=== PATIENT | male | born 1975 | race Caucasian/White ===

== ENCOUNTER 2017-04-24 07:52 | Observation (INO) ==
[2017-04-24] MEDS ORDERED: *HR* LORazepam 2 MG/ML VIAL ONE (07:56)
[2017-04-24] MEDS: *HR* LORazepam 2 MG/ML VIAL IM ONE ×2 (08:01→09:26)
--- NOTE | 2017-04-24 08:12 | Emergency Department Note ---
Disposition Clinical Impression: Elevated TSH Drug ingestion Qualifiers: Encounter type: initial encounter Injury intent: undetermined intent Qualified Code(s): T50.904A - Poisoning by unspecified drugs, medicaments and biological substances, undetermined, initial encounter Altered mental status Qualifiers: Altered mental status type: unspecified Qualified Code(s): R41.82 - Altered mental status, unspecified Disposition: Admitted As Inpatient Condition: Fair Forms: ED Satisfaction Letter Time of Disposition: 15:14 General Adult HPI - General Chief complaint: ED Overdose Stated complaint: ingestion Nursing Notes Reviewed: Yes Vital Signs Reviewed: Yes - History of Present Illness HPI Narrative: 41-year-old male past medical history of smoking, COPD, drug use, presents to the emergency department after inhaling a powdery substance approximately 10 hours ago. Patient states that he also injected something too. Patient reports that he thought it was cocaine, but states he feels like it iis something different. Patient states that he is having a lot of chest pain and discomfort at this time. States that he has had had an episode like this once before. - Related Data Home Medications Medication Instructions Recorded Confirmed Albuterol Sulfate [Albuterol 90 mcg IH Q4HR PRN 06/09/15 06/09/15 Inhaler] BuPROPion SR (12 HR) [Wellbutrin 150 mg PO HS 06/09/15 06/09/15 SR] HYDROcodone/Acet 5/325 mg [[place] 1 tab PO Q6H PRN 06/09/15 06/09/15 5-325 mg] Ibuprofen [Motrin] 200 mg PO Q6HR 06/09/15 06/09/15 Nicotine Polacrilex [Nicorette] 2 mg BC PRN 06/09/15 06/09/15 Tamsulosin [Flomax] 0.4 mg PO HS 06/09/15 06/09/15 Tizanidine HCl [Zanaflex] 4 mg PO TID 06/09/15 06/09/15 Previous Rx's Medication Instructions Recorded OxyCODONE Immed Rel [Roxicodone 5 10 mg PO Q4HR PRN #60 tablet 06/11/15 MG] Amoxicillin/Clavulanate [Augmentin] 875 mg PO BID #10 tablet 11/27/16 Etodolac 400 mg PO BID PRN #10 tablet 11/27/16 Potassium Chloride 20 meq PO BID #6 tab.er.prt 11/27/16 Sulfamethoxazole/Trimeth DS 1 each PO BID #14 tablet 11/29/16 [Bactrim DS] Ciprofloxacin HCl [Cipro] 500 mg PO BID #20 tablet 12/17/16 Doxycycline 100 mg PO BID #20 capsule 12/17/16 Naproxen [Naprosyn] 500 mg PO BID PRN #20 tablet 12/17/16 Allergies Allergy/AdvReac Type Severity Reaction Status Date / Time No Known Allergies Allergy Verified 04/24/17 07:59 All systems ED: reviewed and negative except as stated. Review of Systems: As Per HPI Constitutional: Denies: fever Cardiovascular: Reports: chest pain Respiratory: Reports: cough, dyspnea Gastrointestinal: Denies: abdominal pain, nausea, vomiting Musculoskeletal: Denies: back pain Past Medical History - Past Medical History Medical history: Reports: COPD Surgical history: Reports: non-contributory Psychiatric history: Reports: no psych history - Social History Smoking Status: Current every day smoker Smokeless Tobacco Status: No Alcohol use: Reports: occasionally Drug use: Reports: cocaine, IV Drug Use Physical Exam General: A 41-year-old male who appears to be really anxious, writhing around in the room, appearing very agitated Head: autraumatic, EOMI, no conjuncitval pallor, no scleral icterus, Mouth: oral mucous membranes moist Neck: neck soft, trachea midline Chest:: Equal chest wall rise Lungs: Normal lungs sounds bilaterally, no wheezes, no respiratory distress Heart: normal heart sounds, tachycardic and normal rhythm, Abdomen: soft, non-tender, no rigidity, no guarding, no rebdound tenderness Lower Extremities: no pedal edema, calves non-tender Integumentary: Skin warm, dry, and intact Neuro: Alert and oriented to person, place, time. Dilated pupils, equal and reactive. No focal neurologic deficits. Psych: Agitated Course Vital Signs Temperature 99.8 F H 04/24/17 07:54 Pulse Rate 144 04/24/17 07:54 Respiratory Rate 24 04/24/17 07:54 Blood Pressure 152/95 04/24/17 07:54 O2 Sat by Pulse Oximetry 96 04/24/17 07:54 Temperature 99.8 F H 04/24/17 07:54 Pulse Rate 86 04/24/17 14:09 Respiratory Rate 18 04/24/17 14:09 Blood Pressure 102/73 04/24/17 14:09 O2 Sat by Pulse Oximetry 96 04/24/17 14:09 Oxygen Delivery Oxygen Delivery Nasal Cannula Medical Decision Making - [facility] Narrative Medical decision making narrative: 41-year-old male with history of 12 hours of ingestion of what the patient thinks is unknown substance. Patient came to the emergency department extremely agitated. 4 mg IM Ativan was given. Chest x-ray and electrocardiogram were obtained. Chest x-ray revealed bullous emphysema but no acute evidence of pneumonia or any signs of infection. Echocardiogram did not reveal any ischemic changes. Patient was tachycardic and hypertensive when he came in. After administration of Ativan, patient continued to be tachycardic and was borderline hypotensive. We gave the patient a liter of normal saline. During his visit, patient went to the bathroom and is to be believed by staff that he was snorting a substance. Within 10 minutes, the patient became extremely agitated and attempted to leave. We ordered restraints on this patient as we did not believe he was altered and not oriented unknown to make medical decisions. We then gave patient 4 mg IM of Ativan and 10 mg of Haldol. Patient became calm and somnolent throughout the rest of his stay in this emergency department. Patient was admitted to the hospital for observation regarding his altered mental status. Dr. Loza agreed to accept the patient. Patient was somnolent, pulse was 86. Blood pressure was 102/73. We will obtain a TSH level 7.53. This is mildly elevated. I did discuss this with the hospitalist as well. Chest X-Ray 04/24/17 07:55 IMPRESSION: 1. Emphysema with severe bullous disease in the right upper lobe. No superimposed acute pulmonary abnormality. D/ / Terrance Solis MD / Terrance Solis MD Interpreting Provider: Terrance Solis MD Vital Signs Temperature 99.8 F H 04/24/17 07:54 Pulse Rate 144 04/24/17 07:54 Respiratory Rate 24 04/24/17 07:54 Blood Pressure 152/95 04/24/17 07:54 O2 Sat by Pulse Oximetry 96 04/24/17 07:54 Temperature 99.8 F H 04/24/17 07:54 Pulse Rate 86 04/24/17 14:09 Respiratory Rate 18 04/24/17 14:09 Blood Pressure 102/73 04/24/17 14:09 O2 Sat by Pulse Oximetry 96 04/24/17 14:09 Oxygen Delivery Oxygen Delivery Nasal Cannula - Lab Data Result diagrams: 04/24/17 08:07 Lab Results 04/24/17 04/24/17 Range/Units 08:07 08:07 Sodium 140 (136-145) mEq/L Potassium 3.9 (3.5-4.5) mEq/L Chloride 106 (98-109) mEq/L Carbon Dioxide 23 (19-29) mEq/L BUN 22 (8-26) mg/dL Creatinine 0.90 (0.72-1.25) mg/dL Est GFR ( Amer) > 60 (> 60) Est GFR (Non-Af Amer) > 60 (> 60) BUN/Creatinine Ratio 24 (6-26) Glucose 116 H (70-99) mg/dL Calculated Osmolality 294 (280-300) Calcium 9.2 (8.6-10.8) mg/dL Troponin I 0.00 (0-0.03) ng/mL TSH 7.936 H (0.350-4.840) mcIU/mL - EKG Data EKG #1 EKG attestation: Yes I reviewed and interpreted this EKG. EKG results narrative: 7:59 Ventricular rate 138 bpm, IA interval 140 ms, QRS duration 88 ms, QT 216 ms, QTC 349 ms, normal axis. Sinus tachycardia with a shortened IA interval. There are no ischemic ST changes noted on this electrocardiogram. This electrocardiogram is the same as one performed on March 12.
--- NOTE | 2017-04-24 08:14 | Emergency Department Note ---
START Narrative - START START: I examined this patient and my medical decision-making was reviewed with the Resident Physician. I agree with the documented findings, disposition and treatment plan as described except to the extent set forth below. Pt present agitated, not the best historian. States he took something that "was supposed to be" cocaine, "but I don't think it was." Tachycardic, moderately hypertensive. Has CP, non-radiating, describes poorly, seems to have been there for weeks but can't completely trust history. CXR without mediastinal widening. Radial pulses equal and symmetrical. Clinical suspicion for dissection is very low. EKG reviewed by me, shows sinus tach without ischemic changes or signs of PE outside of tachycardia. Will treat with benzos, cycle troponins, monitor for changes.
[2017-04-24 08:30] LABS: BUN/Creatinine Ratio 24 (6-26); Blood Urea Nitrogen 22 mg/dL (8-26); Calcium 9.2 mg/dL (8.6-10.8); Carbon Dioxide 23 mEq/L (19-29); Chloride 106 mEq/L (98-109); Glucose 116 mg/dL (70-99); Osmolality,Calculated 294 (280-300); Potassium 3.9 mEq/L (3.5-4.5); Sodium 140 mEq/L (136-145); eGFR For African Americans > 60 (> 60); eGFR For Non-African Americans > 60 (> 60)
[2017-04-24] MEDS ORDERED: Ipratropium/Albuterol Neb 3 ML IH STA (08:31)
[2017-04-24 09:02] LABS: Thyroid Stimulating Hormone 7.936 mcIU/mL (0.350-4.840)
[2017-04-24] MEDS ORDERED: *HR* LORazepam 2 MG/ML VIAL IM ONE ×2 (09:16→09:18)
[2017-04-24] MEDS ORDERED: Haloperidol Lactate 5 MG/ML VIAL IM ONE (09:19)
[2017-04-24] MEDS ORDERED: Haloperidol Lactate 5 MG/ML VIAL ONE (09:21)
[2017-04-24] MEDS ORDERED: 0.9 % Sodium Chloride 1,000 ML IVC ONE (10:45)
[2017-04-24] MEDS ORDERED: Naloxone 0.4 MG/ML INJ IVP PRN (16:20)
[2017-04-24] MEDS ORDERED: Ondansetron 4 MG/2 ML VIAL IVP PRN (16:20)
[2017-04-24] MEDS ORDERED: Ipratropium Neb 0.5 MG NEBULIZER IH PRN (16:30)
[2017-04-24] MEDS ORDERED: Benzonatate 100 MG CAPSULE PO PRN (16:30)
--- NOTE | 2017-04-24 16:36 | Internal Med History&Physical ---
<Indio Borrero J - Last Filed: 04/24/17 20:54> Date of Encounter: 04/24/17 Time of Encounter: 16:34 Assessment and Plan (1) Drug ingestion Current visit: Yes Status: Acute Ingested an unknown substance last night, was agitated and combative while in the ED requiring 4 point leather restraints, Ativan and Haldol. He is now somnolent, hemodynamically stable. It is unknown if he has SI or HI. Unable to assess intentions d/t somnolence. Consult psych sitter at bedside Continue Ativan Consider adding Haldol if patient becomes agitated or combative Qualifiers: Encounter type: initial encounter Injury intent: undetermined intent Qualified Code(s): T50.904A - Poisoning by unspecified drugs, medicaments and biological substances, undetermined, initial encounter (2) Altered mental status Current visit: Yes Status: Acute combative and agitated after ingestion of an unknown substance. He is currently somnolent after receiving ativan and haldol. Remains hemodynamically stable. See plan above Qualifiers: Altered mental status type: unspecified Qualified Code(s): R41.82 - Altered mental status, unspecified (3) Elevated TSH Current visit: Yes Status: Acute Newly elevated TSH. Will check free T4 and consider adding synthroid based upon results (4) DVT prophylaxis Current visit: Yes Status: Acute heparin 5000 units SC BID Internal Medicine - H&P: HPI Chief complaint: ingestion of unknown substance Admitted From: Home Plans for Post Hospital Care: Home History of present illness: Mr. Leon is a 41 year old male with a PMH of tobacco abuse, COPD, and polysubstance abuse. Presents to [facility] today strictly agitated. The patient reports that finally last night ingested an unknown powdery substance. He reports that visit with friends and inhaled and also injected an unknown substance and began experiencing chest pain. He reports that he thought he was taking cocaine but that the sensation that followed ingestion of the substance was not what he typically experiences with cocaine. While in the ED he became extremely agitated and needed to be sedated with haldol and ativan. He is now somnolent. Past Med Surg Social Fam HX - Past Medical History Medical history: COPD Psychiatric history: no psych history - Past Surgical History Surgical History: non-contributory - Social History Smoking Status: Current every day smoker Smokeless Tobacco Status: No Alcohol use: occasionally Drug use: cocaine, IV Drug Use - Family History Father Living Status: Still Living Hx Family GI Disorders: Yes - Additional Family History Additional family history: NON-CONTRIBUTORY Internal Medicine - H&P: Meds Albuterol Sulfate [Albuterol Inhaler] 2 puff IH Q4HR PRN 06/09/15 [History] Benzonatate [Benzonatate] 100 mg PO TID PRN 04/24/17 [History] Budesonide/Formoterol 160/4.5 [Symbicort 160/4.5] 2 puff IH BIDR 04/24/17 [ History] Buprenorphine HCl/Naloxone HCl [Suboxone 8 mg-2 mg Sl Film] 1 each SL BID [History] Ipratropium Neb [Atrovent Neb] 0.5 mg IH Q4H PRN 04/24/17 [History] Loratadine [Claritin] 10 mg PO DAILY 04/24/17 [History] predniSONE [PredniSONE] See Taper PO DAILY 04/24/17 [History] 3 Allergy/AdvReac Type Severity Reaction Status Date / Time No Known Allergies Allergy Verified 04/24/17 07:59 ROS unobtainable: due to mental status All Systems PM: A 10-system review of systems was performed and is negative for pertinent findings except as documented above in the HPI. - Constitutional Vitals: Temp Pulse Resp BP Pulse Ox 99.8 F H 79 18 96/66 99 04/24/17 07:54 04/24/17 15:40 04/24/17 15:40 04/24/17 15:40 04/24/17 15:40 General appearance: Present: A&O X 1, disheveled, mild distress - Head Head exam: Present: atraumatic, normocephalic - Eye Eye exam: Present: PERRL Pupils: Present: PERRL - Neck Neck exam general surgery: Present: supple, trachea midline. Absent: lymphadenopathy - Respiratory Respiratory exam: Present: CTAB, respiratory distress, tachypnea. Absent: accessory muscle use, rales, rhonchi, wheezes - Cardiovascular Cardiovascular exam: Present: RRR, +S1, +S2. Absent: diastolic murmur, gallop, rubs, systolic murmur - GI/Abdominal GI/Abdominal exam: Present: normal bowel sounds, soft, no peritoneal signs. Absent: distended, tenderness - Extremities Exam Extremities exam: Present: normal capillary refill, normal inspection, warm, radial pulses palpable and symmetrical. Absent: calf tenderness, cyanotic, pedal edema, tenderness - Neurological Exam Neurological exam: Absent: pronater drift, facial droop, speech deficit Additional comments: JOCELYN d/t somnolence - Skin Skin exam: Present: dry, intact Internal Med - H&P Results - Labs CBC & Chem 7: 04/24/17 08:07 - Diagnostic Studies Chest x-ray Status: image reviewed by me Additional comments: emphysema with severe bollous disease in RUL <Keven Loza - Last Filed: 04/24/17 22:30> Date of Encounter: 04/24/17 Internal Medicine - H&P: HPI History of present illness: Mr. Leon is a 41 year old male All Systems PM: A 10-system review of systems was performed and is negative for pertinent findings except as documented above in the HPI. - Constitutional Vitals: Temp Pulse Resp BP Pulse Ox 99.8 F H 90 18 100/63 98 04/24/17 07:54 04/24/17 17:28 04/24/17 21:13 04/24/17 17:28 04/24/17 21:13 Internal Med - H&P Results - Labs CBC & Chem 7: 04/24/17 08:07 - Attending Attestation I have personally performed a face to face evaluation on this patient. I have reviewed and agree with the care plan. History and Exam by me shows: 41 y/o male with unknown drug ingestion. He was uncontrolled in ED and sedated. Exam Sedated. Heart reg No wheeze Agree with assessment and plan as above Sitter.
[2017-04-24] MEDS: *HR* Heparin 5,000 UNIT/ML VIAL SQ SCH (18:07)
[2017-04-24] MEDS: Budesonide/Formoterol 160/4.5 MDI IH SCH (21:13)
[2017-04-24] MEDS: (Buprenorphine Hcl/Naloxone Hcl [Suboxone 8 Mg-2 Mg S SL SCH (22:05)
[2017-04-24] MEDS: *HR* LORazepam 2 MG/ML VIAL IVP SCH (22:09)
[2017-04-25] MEDS: *HR* LORazepam 2 MG/ML VIAL IVP SCH ×3 (00:30→10:06)
[2017-04-25] MEDS: *HR* Heparin 5,000 UNIT/ML VIAL SQ SCH (05:12)
[2017-04-25 06:04] LABS: Basophils % 0.3 %; Eosinophils # 0.2 K/mcL (0.0-0.6); Eosinophils % 1.8 %; Hematocrit 44.6 % (37.5-50.1); Hemoglobin 14.7 g/dL (12.9-16.9); Immature Granulocytes % 0.8 % (0-4); Lymphocytes # 4.3 K/mcL (0.6-4.6); Lymphocytes % 32.4 %; Mean Corpuscular Hemoglobin 29.1 pg (28.0-33.3); Mean Corpuscular Volume 88.3 fL (83.0-100.0); Mean Platelet Volume 11.5 fL (9.4-12.4); Monocytes % 7.6 %; Neutrophils # 7.5 K/mcL (1.6-8.9); Platelet Count 239 K/mcL (140-400); Red Blood Count 5.05 M/mcL (4.19-5.50); Red Cell Distribution Width 14.5 % (11.5-14.5); Segmented Neutrophils % 57.1 %
[2017-04-25 06:17] LABS: BUN/Creatinine Ratio 26 (6-26); Blood Urea Nitrogen 19 mg/dL (8-26); Calcium 8.2 mg/dL (8.6-10.8); Carbon Dioxide 25 mEq/L (19-29); Chloride 109 mEq/L (98-109); Glucose 67 mg/dL (70-99); Osmolality,Calculated 295 (280-300); Potassium 3.9 mEq/L (3.5-4.5); Sodium 142 mEq/L (136-145); eGFR For African Americans > 60 (> 60); eGFR For Non-African Americans > 60 (> 60)
--- NOTE | 2017-04-25 07:19 | Electrocardiograph Report ---
[facility] Test Date: 2017-04-24 Pat Name: Vipul Leon Department: 103 Room: 3B34 Gender: M Customer Service Consultant: : [id number] Requested By: Duc Moeller Order Number: [id number] Reading MD: Mehrdad Cabrera MD Measurements Intervals [place] Rate: 138 P: 77 DC: 114 QRS: 97 QRSD: 88 T: 74 QT: 268 QTc: 349 Interpretive Statements SINUS TACHYCARDIA Electronically Signed On 04-25-2017 7:17:31 EST by Mehrdad Cabrera MD
[2017-04-25] MEDS: Budesonide/Formoterol 160/4.5 MDI IH SCH (08:19)
[2017-04-25] MEDS ORDERED: Loratadine 10 MG TABLET PO SCH (09:00)
[2017-04-25] MEDS ORDERED: *HR* LORazepam 2 MG/ML VIAL IVP PRN (09:43)
[2017-04-25] MEDS: (Buprenorphine Hcl/Naloxone Hcl [Suboxone 8 Mg-2 Mg S SL SCH (09:47)
--- NOTE | 2017-04-25 11:40 | Consult Note ---
Date of Encounter: 04/25/17 Time of Encounter: 11:30 Assessment & Recommendation (1) Depression Status: Acute Assessment & Recommendation: Patient denies any intentional overdose. This is confirmed by his fiancee. He currently receives substance abuse counseling at [facility]. He would like to continue this and is interested in starting a medication to help with his mood. We discussed him starting Celexa 10 mg by mouth daily. He is interested in following up with his PCP or psychiatrist at [facility] for further care. At this time he does not meet criteria for inpatient admission. No evidence that patient was attempting to hurt himself with the drug ingestion. From a psychiatric perspective he is stable for discharge. Recommend outpatient follow-up. Qualifiers: Depression Type: major depressive disorder Major depression recurrence: recurrent Active/Remission status: currently active Major depression episode severity: moderate Qualified Code(s): F33.1 - Major depressive disorder, recurrent, moderate (2) Substance abuse Status: Acute Assessment & Recommendation: Recommended patient continue substance abuse counseling. Encouraged patient to discontinue drug use. History of Present Illness Patient: new to practice Requesting Physician: Javier Epstein MD Reason for consult: ingestion History of present illness: Mr. Leon is a 41 year old male with a history of cocaine and other drug abuse as well as depression who presented to the hospital after apparently taking some drug that patient thought this cocaine. Patient was using the cocaine recreationally but it made him feel very paranoid and nervous. Enoch is at bedside and states that patient wanted help but was afraid to trust anybody because of the paranoia. He did eventually allow himself to be brought to the hospital. Patient does not remember that much of this but states he did not ingest the cocaine or whenever drug unit was in order to kill himself. He denies suicidal thoughts at any time. Enoch also reports that the patient was not suicidal and she does not think he was trying to hurt himself. He does go to groups at [facility] for substance abuse. Patient does feel at times she has problems with mood swings and depression. He is interested in potentially starting a medication for depression. Today he denies any suicidal thoughts and would like to go home and get outpatient treatment. He denies history of psychosis. Denies history of andrew. CC: Javier Epstein MD Past Med Surg Social Fam HX - Past Medical History Medical history: COPD - Past Psychiatric History Psychiatric history: Reports: other (Substance abuse) - Past Surgical History Surgical History: non-contributory - Social History Smoking Status: Current every day smoker Smokeless Tobacco Status: No Alcohol use: occasionally Drug use: cocaine, IV Drug Use, prescription drug abuse Occupational status: unemployed Current living situation: Home - Family History Father Living Status: Still Living Hx Family GI Disorders: Yes Medications & Allergies Albuterol Sulfate [Albuterol Inhaler] 2 puff IH Q4HR PRN 06/09/15 [History] Benzonatate 100 mg PO TID PRN 04/24/17 [History] Budesonide/Formoterol 160/4.5 [Symbicort 160/4.5] 2 puff IH BIDR 04/24/17 [ History] Buprenorphine HCl/Naloxone HCl [Suboxone 8 mg-2 mg Sl Film] 1 each SL BID [History] Ipratropium Neb [Atrovent Neb] 0.5 mg IH Q4H PRN 04/24/17 [History] Loratadine [Claritin] 10 mg PO DAILY 04/24/17 [History] predniSONE [PredniSONE] See Taper PO DAILY 04/24/17 [History] levoFLOXacin [Levaquin] 500 mg PO DAILY #7 tablet 04/25/17 [Rx] 3 Allergy/AdvReac Type Severity Reaction Status Date / Time No Known Allergies Allergy Verified 04/24/17 07:59 Review of Systems Constitutional: Denies: fever, chills, weakness, weight change Eyes: Denies: eye pain, vision change Ears, Nose, Throat: Denies: ear pain, throat pain, dental pain, hearing loss, congestion Cardiovascular: Denies: chest pain, palpitations, dyspnea on exertion Respiratory: Denies: cough, dyspnea, wheezes Gastrointestinal: Denies: abdominal pain, nausea, vomiting, diarrhea, constipation Genitourinary male: Denies: urgency, dysuria, frequency, genital lesions Genitourinary female: Denies: urgency, dysuria, frequency, abnormal menses, dyspareunia Musculoskeletal: Denies: joint swelling, joint pain Integumentary: Denies: rash, lesions, pruritus Neurological: Denies: headache, weakness, numbness, memory loss Psychiatric: Reports: depression, anxiety, abnormal sleep pattern Endocrine: Denies: fatigue, heat or cold intolerance Hematologic/Lymphatic: Denies: easy bruising, lymphadenopathy Allergic/Immunologic: Denies: urticaria, itchy eyes Mental Status Exam Patient orientation: Yes Person, Yes Time, Yes Place Level of alertness: Alert Patient appearance: Appropriate, Well Groomed Behavior: calm, cooperative Psychomotor activity: Normal Eye contact: Maintains Eye Contact Mood description: Euthymic/stable Affect description: congruent with mood, full range Speech pattern: Normal rate, Normal rhythm, Normal tone Speech volume: Normal Thought process: Linear, Goal Oriented Thought content: No Suicidal ideation, No Homicidal ideation, No Overt delusions Perceptual disturbances: No Auditory hallucinations, No Visual hallucinations Attention span: Capable of Focused Attention Memory description: Grossly Intact Patient reliability: Reliable Historian Intelligence estimate: Average Judgment: Limited Insight: Partial Results - Vital Signs Vital signs: Temp Pulse Resp BP Pulse Ox 97.6 F 75 16 87/50 95 04/25/17 07:00 04/25/17 07:00 04/25/17 08:20 04/25/17 07:00 04/25/17 08:20 - Labs Labs: Laboratory Last Values WBC 13.2 K/mcL (4.3-11.1) H 04/25/17 05:01 RBC 5.05 M/mcL (4.19-5.50) 04/25/17 05:01 Hgb 14.7 g/dL (12.9-16.9) 04/25/17 05:01 Hct 44.6 % (37.5-50.1) 04/25/17 05:01 MCV 88.3 fL (83.0-100.0) 04/25/17 05:01 MCH 29.1 pg (28.0-33.3) 04/25/17 05:01 MCHC 33.0 g/dL (31.6-35.5) 04/25/17 05:01 RDW 14.5 % (11.5-14.5) 04/25/17 05:01 Plt Count 239 K/mcL (140-400) 04/25/17 05:01 MPV 11.5 fL (9.4-12.4) 04/25/17 05:01 Immature Gran % 0.8 % (0-4) 04/25/17 05:01 Seg Neutrophils % 57.1 % 04/25/17 05:01 Lymphocytes % 32.4 % 04/25/17 05:01 Monocytes % 7.6 % 04/25/17 05:01 Eosinophils % 1.8 % 04/25/17 05:01 Basophils % 0.3 % 04/25/17 05:01 Neutrophils # 7.5 K/mcL (1.6-8.9) 04/25/17 05:01 Lymphocytes # 4.3 K/mcL (0.6-4.6) 04/25/17 05:01 Monocytes # 1.0 K/mcL (0.0-1.3) 04/25/17 05:01 Eosinophils # 0.2 K/mcL (0.0-0.6) 04/25/17 05:01 Basophils # 0.0 K/mcL (0.0-0.2) 04/25/17 05:01 Sodium 142 mEq/L (136-145) 04/25/17 05:01 Potassium 3.9 mEq/L (3.5-4.5) 04/25/17 05:01 Chloride 109 mEq/L (98-109) 04/25/17 05:01 Carbon Dioxide 25 mEq/L (19-29) 04/25/17 05:01 BUN 19 mg/dL (8-26) 04/25/17 05:01 Creatinine 0.73 mg/dL (0.72-1.25) 04/25/17 05:01 Est GFR ( Amer) > 60 (> 60) 04/25/17 05:01 Est GFR (Non-Af Amer) > 60 (> 60) 04/25/17 05:01 BUN/Creatinine Ratio 26 (6-26) 04/25/17 05:01 Glucose 67 mg/dL (70-99) L 04/25/17 05:01 Calculated Osmolality 295 (280-300) 04/25/17 05:01 Calcium 8.2 mg/dL (8.6-10.8) L 04/25/17 05:01 Troponin I 0.00 ng/mL (0-0.03) 04/24/17 08:07 TSH 7.936 mcIU/mL (0.350-4.840) H 04/24/17 08:07 Free T4 1.16 ng/dl (0.70-1.48) 04/24/17 08:07 Consult Discharge Plan - Plan Instructions: Levofloxacin (By mouth), Chronic Obstructive Pulmonary Disease ( DC) Additional Instructions: Stop smoking. Refrain from using all recreational drugs. Follow-up with PCP within 1 week of discharge. Follow-up with a lung specialist regarding your COPD. Referrals: Nallely Moses DO [Primary Care Provider] - 05/01/17 2:00 pm Prescriptions: levoFLOXacin [Levaquin] 500 mg PO DAILY #7 tablet
[2017-04-25 12:07] VITALS: BP 93/51
--- NOTE | 2017-04-25 13:43 | Discharge Summary ---
Date of Encounter: 04/25/17 Time of Encounter: 13:40 - Discharge Diagnosis (1) COPD (chronic obstructive pulmonary disease) Priority: Secondary Status: Acute Qualifiers: COPD type: emphysema Emphysema type: panlobular Qualified Code(s): J43.1 - Panlobular emphysema (2) Drug ingestion Priority: Secondary Status: Acute Qualifiers: Encounter type: initial encounter Injury intent: undetermined intent Qualified Code(s): T50.904A - Poisoning by unspecified drugs, medicaments and biological substances, undetermined, initial encounter (3) Altered mental status Priority: Primary Status: Acute Qualifiers: Altered mental status type: delirium Qualified Code(s): R41.0 - Disorientation, unspecified (4) Substance abuse Priority: Secondary Status: Acute - Discharge Medications Prescriptions: levoFLOXacin [Levaquin] 500 mg PO DAILY #7 tablet Home Medications: Albuterol Sulfate [Albuterol Inhaler] 2 puff IH Q4HR PRN 06/09/15 [History] Benzonatate 100 mg PO TID PRN 04/24/17 [History] Budesonide/Formoterol 160/4.5 [Symbicort 160/4.5] 2 puff IH BIDR 04/24/17 [ History] Buprenorphine HCl/Naloxone HCl [Suboxone 8 mg-2 mg Sl Film] 1 each SL BID [History] Ipratropium Neb [Atrovent Neb] 0.5 mg IH Q4H PRN 04/24/17 [History] Loratadine [Claritin] 10 mg PO DAILY 04/24/17 [History] predniSONE [PredniSONE] See Taper PO DAILY 04/24/17 [History] levoFLOXacin [Levaquin] 500 mg PO DAILY #7 tablet 04/25/17 [Rx] Allergies/Adverse Reactions: 3 Allergy/AdvReac Type Severity Reaction Status Date / Time No Known Allergies Allergy Verified 04/24/17 07:59 Date of admission: 04/24/17 15:25 Primary care physician: Lu Logan Consults: 04/24/17 17:05 Consult to Psychiatry [CONS] Routine Consulting Provider: Psychiatry Jyoti Reason for Consult: ingestion of unknown substance; r/o SI Call Completed: No - Patient Status Disposition: Home, Self-Care Condition: Fair Functional capacity at discharge: independent ambulation Overall status at discharge: patient is back to baseline - Discharge Instructions Instructions: Levofloxacin (By mouth), Chronic Obstructive Pulmonary Disease ( DC) Follow Up With: Nallely Moses DO [Primary Care Provider] - 05/01/17 2:00 pm Additional Instructions: Stop smoking. Refrain from using all recreational drugs. Follow-up with PCP within 1 week of discharge. Follow-up with a lung specialist regarding your COPD. - Diet and Activity Activity: increase activity as tolerated Diet: regular diet Hospital course: Mr. Leon is a 41 year old male with past medical history significant for COPD and tobacco abuse who presented to the hospital extremely agitated after he ingested some recreational drugs. He was delirious and combative and received hold all and Ativan in the emergency department and then he became somnolent. Today he is back to normal is calm cooperative alert and oriented and denies suicidal and homicidal ideation. He was cleared by psychiatry for discharge. I advised him to quit smoking and discuss a referral to pulmonology with his PCP. Advised him to cease using all recreational drugs. Patient continues To complain of shortness of breath and cough productive of sputum consistent with COPD exacerbation. He has on a prednisone taper. He will continue that along with his inhaled bronchodilators. I will prescribe a 7 day course of Levaquin. - Time Spent with Patient Total time spent providing and/or coordinating discharge services: - Constitutional Vitals: Temp Pulse Resp BP Pulse Ox 98.1 F 100 16 93/51 96 04/25/17 12:02 04/25/17 12:02 04/25/17 12:02 04/25/17 12:02 04/25/17 12:02 General appearance: Present: A&O X 1, disheveled, mild distress - Respiratory Respiratory exam: Present: decreased breath sounds, CTAB. Absent: accessory muscle use, rales, rhonchi, wheezes - Cardiovascular Cardiovascular exam: Present: RRR, +S1, +S2. Absent: diastolic murmur, gallop, rubs, systolic murmur - GI/Abdominal GI/Abdominal exam: Present: normal bowel sounds, soft, no peritoneal signs. Absent: distended, tenderness
== END 2017-04-25 14:27 | disposition home or self-care (01) ==
LOC: EMEROO 07:52 → 3BNU 07:52 → SUATTDRO 15:25 → 3BNU 17:02
PROVIDERS: ADMIT Nurse Practitioner; ATTEND Internal Medicine